=== PATIENT | female | born 1975 ===

== ENCOUNTER 2017-12-23 21:43 | Emergency (ER) | payer OTHER ==
[~2017-12-23] VITALS: Ht 162.6 cm; Wt 79.8 kg
[~2017-12-23 21:43] MED LIST: AURALGAN OTIC S14 ML OT; CIPRO500 MG PO; DOLOGESIC CAPLE1 TAB PO; KETO10TA2 PO; PHENAGIL CH TA1 EACH PO
[2017-12-24] MEDS ORDERED: ORPHENADRINE C100 MG PO (01:38)
[2017-12-24] MEDS ORDERED: KETO10TA2 PO (01:38)
== END 2017-12-24 01:49 | disposition home or self-care (01) ==
LOC: ER 21:43
DX: M62.830 Muscle spasm of back (principal)

== ENCOUNTER 2018-05-12 07:55 | Emergency (ER) | payer OTHER ==
[~2018-05-12] VITALS: Ht 162.6 cm; Wt 77.1 kg
[~2018-05-12 07:55] MED LIST changes: +ORPHENADRINE C100 MG PO
== END 2018-05-12 14:03 | disposition home or self-care (01) ==
LOC: ER 07:55
DX: N20.0 Calculus of kidney (principal); K59.09 Other constipation

== ENCOUNTER 2019-02-26 07:00 | Day surgery (SDC) | payer OTHER ==
[~2019-02-26] VITALS: Ht 162.6 cm; Wt 179.0 kg
[~2019-02-26 07:00] MED LIST changes: +TOPROL XL25 M1 PO
[2019-02-27] MEDS ORDERED: NABUMETONE750 MG PO (13:17)
[2019-02-27] MEDS ORDERED: DOCUSATE SODIU100 MG PO (13:18)
[2019-02-27] MEDS ORDERED: OXYC1TAB9 PO (13:18)
[2019-02-27] MEDS ORDERED: NORFLEX100MG PO (13:19)
== END 2019-02-27 08:00 | disposition home or self-care (01) ==
LOC: CIR.AMB 07:00 → O/R 13:28 → OB/GYN 13:28 → CIR.AMB 02-27 08:00 → OB/GYN 02-27 13:41 → SURH 03-04 07:15 → EDSTATUS 03-04 07:15
DX: D25.1 Intramural leiomyoma of uterus (principal); N72 Inflammatory disease of cervix uteri; N83.8 Other noninflammatory disorders of ovary, fallopian tube and broad ligament; I10 Essential (primary) hypertension